=== PATIENT | male | born 1955 | race Caucasian/White ===

== ENCOUNTER → 2018-12-09 | Day surgery (SDC) | payer OTHER ==
[~2018-12-09] MED LIST: CELEBREX200 MG PO; DOXAZOSIN PO; FENTANYL CITRATE/PF 100MCG/2 ML INJ ONE; HYOSCYAMINE 0.125 MG TAB ONE; LIDOCAINE HCL 2% LOCAL INJ 5 ML SDV VIAL INJ ONE; MIDAZOLAM HCL 2 MG/2 ML VIAL ONE; OMEPRAZOLE40 MG PO; PROPOFOL IV EMULSION 10 MG/ML 50 ML VIAL ONE; UNKNOWN BP MED PO; ZEGERID 40 MG1 EACH PO; ZETIA10 MG PO
--- OUTSIDE RECORDS SUMMARY | 2018-12-09 12:16 | XMS REPORT | Encounter Summary ---
Author Organization Unknown Address [address] [place] [address] Phone [phone] Reason for Visit Medical Complaint Instructions 1. Cough Medrol (Edy) 4 mg tablets in a dose pack 2. Acute sinusitis Augmentin 875 mg-125 mg tablet 3. Allergic rhinitis Discussion Note: None recorded. Patient educational handouts: No information available. Plan of Care Patient Instructions Continue flonase, start on Zyrtec only without D. If symptoms not improve in 3 days, call clinic or see pcp. Reminders Provider Appointments None recorded. Lab None recorded. Referral None recorded. Procedures None recorded. Surgeries None recorded. Imaging None recorded. Medications Name Start Date Augmentin 875 mg-125 mg tablet Take 1 tablet every 12 hours by oral route with meals for 7 days. celecoxib 200 mg capsule Medrol (Edy) 4 mg tablets in a dose pack Take as directed on package. naproxen 500 mg tablet TAKE ONE (1) TABLET(S) BY MOUTH TWICE A DAY WITH FOOD. omeprazole 40 mg capsule,delayed release Zetia 10 mg tablet Medications Administered None recorded. Vitals Height Weight BMI Blood Pressure 5 ft 10 in 221 lbs 31.7 130/88 Lab Results None recorded. Allergies Name Reaction Severity Onset NKDA Problems Name Status Onset Date Source Eustachian Tube Disorder Active Encounter Acute Sinusitis Active Encounter Acute Bronchitis Active Encounter Allergic Rhinitis Active Encounter Dizziness Active Encounter Cough Active Encounter Procedures Date Name Performed by 03/18/2010 Cholecystectomy Information not available Anesth Repair of Hernia Information not available Vaccine List Vaccine Type influenza, seasonal, injectable 12/15/2014 Social History Smoking Status Never Smoker Past Encounters 04/03/2016 Cough; Acute Sinusitis; Allergic Rhinitis Sonia Mensah, PLUMBING ENGINEERING DRAFTSPERSON: [address] [place] [address], Ph. History of Present Illness Cough Reported By: Patient HPI: Location: chest, nasal/sinus. Quality: productive cough, colored phlegm, congested, dry cough, feels 50 percent of normal. Duration: 9 days. Severity: severe. Onset/Timing: gradual. Context: no sick contacts, no foreign travel, non-smoker. Modifying factors: OTC medication. Associated Symptoms: no sputum production, no shortness of breath, no sweats, no significant weight gain, no significant weigh t loss, no morning cough, no sore throat, no vomiting, no diarrhea, no rash, no nausea, no fever/chills, no muscle aches, no headache, wheezing Review of Systems Basic Reported By: Patient Constitutional: Constitutional: no fever Eyes: Eyes: no eye complaints Chpe-Fbms-Nresg-Throat: Ears: no ear complaints. Nose: nose/sinus problems. Mouth/Throat: no sore throat, no bleeding gums, no mouth complaints, no teeth problems Cardiovascular: Cardiovascular: no chest pain, no shortness of breath, no known heart murmur Respiratory: Respiratory: no shortness of breath, cough, wheezing Gastrointestinal: Gastrointestinal: no abdominal pain, no vomiting / diarrhea Genitourinary: Genitourinary: no urinary complaints, no discharge Musculoskeletal: Musculoskeletal: no muscle aches, no muscle weakness, no arthralgias/joint pain, no back pain Skin: Skin: no abnormal / changing mole, no jaundice, no rashes Neurologic: Neurologic: no loss of consciousness, no weakness, no numbness, no seizures, no dizziness, no headaches Physical Exam Adult Basic, Adult Male Complete Constitutional: General Appearance: healthy-appearing, well-nourished, well-developed. Level of Distress: NAD. Ambulation: ambulating normally Psychiatric: Mental Status: active and alert. Orientation: to time, to place, to person Eyes: Lids and Conjunctivae: non-injected, no discharge, no pallor. Pupils: PERRLA. Corneas: grossly intact. EOM: EOMI. Lens: clear. Sclerae: non-icteric. Vision: acuity grossly intact, peripheral vision grossly intact Sto-Mfii-Tujqz-Throat: Ears: no lesions on external ear, no outer ear tenderness, EACs clear, TMs clear, middle ear fluid. Hearing: no hearing loss. Nose: no lesions on external nose, nares patent, no septal deviation, nasal passages clear, sinus tenderness, nasal discharge--purulent, post nasal drip. Lips, Teeth, and Gums: no mouth or lip ulcers, no bleeding gums, normal dentition. Oropharynx: moist mucous membranes, no exudates, tonsils not enlarged, erythema Neck: Neck: supple, trachea midline, no masses, FROM. Lymph Nodes: no supraclavicular LAD, anterior cervical LAD. Thyroid: no enlargement, non-tender, no nodules Lungs: Respiratory effort: no dyspnea, no tachypnea, no use of accessory muscles, no intercostal retractions. Auscultation: breath sounds normal, good air movement Cardiovascular: Heart Auscultation: RRR, no murmurs
--- OUTSIDE RECORDS SUMMARY | 2018-12-09 12:16 | XMS REPORT | Encounter Summary ---
Author Organization Unknown Address [address] [place] [address] Phone [phone] Reason for Visit Medical Complaint Instructions 1. Acute bronchitis albuterol sulfate HFA 90 mcg/actuation aerosol inhaler Bromfed DM 2 mg-30 mg-10 mg/5 mL syrup bronchitis: care instructions 2. Acute sinusitis Augmentin 875 mg-125 mg tablet sinusitis: care instructions Discussion Note: None recorded. Plan of Care Patient Instructions Take albuterol every 4-6 hoursfor at least the next 5 days. Please complete antibiotic course even after symptoms resolve. Try warm salt water gargles, throat lozanges, soups ortea with honey and/or lemon juice to soothe the throat. Take ibuprofen or tylenolevery 6 hours for fever, pain and/or swelling of throat.Try flonase nasal spray,2sprays to each nostril once a dayfor nasal congestion. Consider using a saline sinus wash or NetiPot for sinus cleansing.Please f/u with PCP in 1 week or seek care immediatelyif you are short of breath, have trouble breathing, or can't catch breath or if any of the symptoms get worse.Patient verbalizes understanding and agrees to the plan. Reminders Provider Appointments None recorded. Lab None recorded. Referral None recorded. Procedures None recorded. Surgeries None recorded. Imaging None recorded. Medications Name Start Date albuterol sulfate HFA 90 mcg/actuation aerosol inhaler Inhale 2 puff(s) every 4-6 hours by inhalation route as needed for wheezing. Augmentin 875 mg-125 mg tablet Take 1 tablet(s) every 12 hours by oral route with meals for 10 days. Bromfed DM 2 mg-30 mg-10 mg/5 mL syrup Take 10 mL every 6 hours by oral route as needed for cough. meclizine 25 mg tablet TAKE ONE (1) TABLET(S) BY MOUTH THREE TIMES A DAY DIRECTED FOR DIZZINESS FOR 7 DAYS. Zetia 10 mg tablet Medications Administered None recorded. Vitals Height Weight BMI Blood Pressure 5 ft 10 in 225 lbs 32.3 124/84 Lab Results None recorded. Allergies Name Reaction Severity Onset NKDA Problems Name Status Onset Date Source Eustachian Tube Disorder Active Encounter Acute Sinusitis Active Encounter Acute Bronchitis Active Encounter Dizziness Active Encounter Procedures Date Name Performed by 03/18/2010 Cholecystectomy Information not available Anesth Repair of Hernia Information not available Vaccine List Vaccine Type influenza, seasonal, injectable 12/15/2014 Social History Smoking Status Never Smoker Past Encounters 09/10/2015 Acute Bronchitis; Acute Sinusitis Juanis ConroyNATEP: [address] [place] [address], Ph. History of Present Illness Qydwo-Itafixpinl-Msweqkn Reported By: Patient HPI: Location: head/sinuses. Quality: productive cough, sore throat, colored phlegm, nasal/sinus congestion, dry cough. Duration: 14days. Severity: moderate. Onset/Timing: gradual. Context: no sick contacts, no foreign travel, non-smoker. Modifying factors: OTC medication. Associated Symptoms: no sputum production, no shortness of breath, no change in number of pillows needed to sleep at night, no sweats, no significant weight gain, no significant weight loss, no morning cough, no sore throat, no vomiting, no diarrhea, no rash, no nausea, wheezing Review of Systems Basic Reported By: Patient Constitutional: Constitutional: no fever Eyes: Eyes: no eye complaints Raiy-Hzyn-Zbrqd-Throat: Ears: ear pain. Nose: no nose/sinus problems. Mouth/Throat: no bleeding gums, no mouth complaints, no teeth problems, sore throat Cardiovascular: Cardiovascular: no chest pain, no shortness [...] weakness, no numbness, no seizures, no dizziness, headache Physical Exam Adult Basic, Adult Male Complete Constitutional: General Appearance: healthy-appearing, well-nourished, well-developed. Level of Distress: NAD. Ambulation: ambulating normally Psychiatric: Mental Status: active and alert. Orientation: to time, to place, to person Eyes: Lids and Conjunctivae: non-injected, no discharge, no pallor. Pupils: PERRLA. EOM: EOMI. Lens: clear. Sclerae: non-icteric Rdy-Fttn-Rexdt-Throat: Ears: no lesions on external ear, no outer ear tenderness, EACs clear, TMs clear, TM mobility normal. Hearing: no hearing loss. Nose: no lesions on external nose, nares patent, no septal deviation, nasal passages clear, sinus tenderness, nasal discharge--purulent, post nasal drip. Lips, Teeth, and Gums: no mouth or lip ulcers, no bleeding gums, normal dentition. Oropharynx: moist mucous membranes, no exudates, tonsils not enlarged, erythema Neck: Neck: supple. Lymph Nodes: no cervical LAD Lungs: Respiratory effort: no dyspnea, no tachypnea. Auscultation: good air movement, expiratory wheezing Cardiovascular: Heart Auscultation: RRR, no murmurs Neurologic: Gait and Station: normal gait
--- OUTSIDE RECORDS SUMMARY | 2018-12-09 12:16 | XMS REPORT | Continuity of Care Document ---
Author Author [employer] Address Unknown Phone Unavailable Care Team Providers Care Director [facility] Name Role Phone [employer] Unavailable Unavailable Problems Problem Status Onset Date Classification Date Reported Comments Source Feeling feverish 03/18/2017 Diagnosis 03/18/2017 [facility] Pain in throat 03/18/2017 Diagnosis 03/18/2017 [facility] Eustachian tube disorder Problem 03/18/2017 [facility] Acute sinusitis Problem 03/18/2017 [facility] Acute bronchitis Problem 03/18/2017 [facility] Dizziness Problem 03/18/2017 [facility] Allergic rhinitis Problem 03/18/2017 [facility] Cough Problem 03/18/2017 [facility] Medications Medication Details Route Status Patient Instructions Ordering Provider Order Date Source 200 ACTUAT Albuterol 0.09 MG/ACTUAT Metered Dose Inhaler albuterol sulfate HFA 90 mcg/actuation aerosol inhaler Inhale 2 puff(s) every 4- 6 hours by inhalation route as needed for wheezing. Active [facility] Amoxicillin 875 MG / Clavulanate 125 MG Oral Tablet [Augmentin] Augmentin 875 mg-125 mg tablet Take 1 tablet every 12 hours by oral route with meals for 7 days. Active [facility] Brompheniramine Maleate 0.4 MG/ML / Dextromethorphan Hydrobromide 2 MG/ML / Pseudoephedrine Hydrochloride 6 MG/ML Oral Solution [Bromfed DM] Bromfed DM 2 mg-30 mg-10 mg/5 mL syrup Take 10 mL every 6 hours by oral route as needed for cough. Active [facility] Meclizine Hydrochloride 25 MG Oral Tablet meclizine 25 mg tablet TAKE ONE (1) TABLET(S) BY MOUTH THREE TIMES A DAY DIRECTED FOR DIZZINESS FOR 7 DAYS. Active [facility] ezetimibe 10 MG Oral Tablet [Zetia] Zetia 10 mg tablet Active [facility] ezetimibe 10 MG Oral Tablet ezetimibe 10 mg tablet Active [facility] Omeprazole 40 MG Delayed Release Oral Capsule omeprazole 40 mg capsule,delayed release Active [facility] celecoxib 200 MG Oral Capsule celecoxib 200 mg capsule Active [facility] Medrol (Edy) 4 mg tablets in a dose pack Medrol (Edy) 4 mg tablets in a dose pack Take as directed on package. Active [facility] Naproxen 500 MG Oral Tablet naproxen 500 mg tablet TAKE ONE (1) TABLET(S) BY MOUTH TWICE A DAY WITH FOOD. Active [facility] Allergies, Adverse Reactions, Alerts No Known Medication Allergies Immunizations Immunization Date Given Site Status Last Updated Comments Source influenza, injectable, quadrivalent 12/16/2016 completed [facility] influenza, seasonal, injectable 12/16/2014 completed [facility] Results Order Name Results Value Reference Range Date Interpretation Comments Source RESULT negative 03/18/2017 [facility] SWAB LOCATION Left and Right tonsillar pillars 03/18/2017 [facility] Influenza A negative 03/18/2017 [facility] Influenza B negative 03/18/2017 [facility] Pathology Reports No Data Provided for This Section Diagnostic Reports No Data Provided for This Section Consultation Notes No Data Provided for This Section Discharge Summaries No Data Provided for This Section History and Physicals No Data Provided for This Section Vital Signs Vital Sign Value Date Comments Source Diastolic (mm Hg) 80 03/18/2017 [facility] Height 70 03/18/2017 [facility] Systolic (mm Hg) 122 03/18/2017 [facility] Weight 230 03/18/2017 [facility] Diastolic (mm Hg) 88 04/03/2016 [facility] Height 70 04/03/2016 [facility] Systolic (mm Hg) 130 04/03/2016 [facility] Weight 221 04/03/2016 [facility] Diastolic (mm Hg) 84 09/10/2015 [facility] Height 70 09/10/2015 [facility] Systolic (mm Hg) 124 09/10/2015 [facility] Weight 225 09/10/2015 [facility] Encounters Location Location Details Encounter Type Encounter Number Reason For Visit Attending Provider ADM Date DC Date Status Source [place] - [facility] - [id number] Conroy, GYMNASTIC TEACHER: [address] [place] [address], Ph. [phone] [id number] Juanis Conroy 09/10/2015 [facility] [place] - [facility] - [id number] Sonia Makenna, GYMNASTIC TEACHER: [address] [facility] [place] [address], Ph. [id number] Sonia Makenna 04/03/2016 [facility] [place] - [facility] - [id number] Jose L Mensah, GYMNASTIC TEACHER-C: [address] [facility] [place] [address], Ph. [id number] Jose L Mensah 03/18/2017 [facility] Procedures Procedure Code Date Perfomer Comments Source Cholecystectomy 03/18/2010 [facility] Anesth Repair of Hernia [facility] Anesth Repair of Hernia [address] [facility] Assessment and Plan No Data Provided for This Section Plan of Care No Data Provided for This Section Social History Social History Date Source Smoking Status Never Smoker 07/24/2014 [facility] Family History No Data Provided for This Section Advance Directives No Data Provided for This Section Functional Status No Data Provided for This Section
--- OUTSIDE RECORDS SUMMARY | 2018-12-09 12:16 | XMS REPORT | Clinical Summary ---
Author Author [facility] Organization [facility] Address Unknown Phone Unavailable Care Team Providers Care English Division Chair Name Role Phone PCP Unavailable Allergies No Known Allergies Medications End Date Status Medication Sig Dispensed Refills Start Date Active omeprazole (PRILOSEC) 40 Take 40 mg by 0 MG capsule mouth daily. Active ezetimibe (ZETIA) 10 mg Take 10 mg by 0 tablet mouth daily. Active celecoxib (CELEBREX) 200 Take 200 mg 0 MG capsule by mouth every 12 (twelve) hours as needed for Pain. Active doxazosin (CARDURA) 2 MG Take 2 mg by 0 tablet mouth nightly. 11/25/2018 Discontinued dexAMETHasone (DECADRON) Take 2 mg by 0 2 MG tablet mouth 2 (two) times daily with breakfast and dinner. Active Problems Not on file Encounters Care Team Description Date Type Specialty Lou Mays MD [facility] 11/25/2018 Surgery Gastroenterology Lenard Cline MD 11/25/2018 Hospital Gastroenterology Encounter after 12/08/2017 Social History Date Tobacco Use Types Packs/Day Years Used Never Smoker Smokeless Tobacco: Never Used Alcohol Use Drinks/Week oz/Week Comments No Alcohol Habits Answer Date Recorded How often do you have a drink containing alcohol? Never 11/25/2018 How many drinks containing alcohol do you have on Not asked a typical day when you are drinking? How often do you have six or more drinks on one Not asked occasion? Sex Assigned at Date Recorded Not on file Industry Job Start Date Occupation Not on file Not on file Not on file Travel End Travel History Travel Start No recent travel history available. Last Filed Vital Signs Not on file Plan of Treatment Care Team Description Date Type Specialty Blair Bush MD [address] [facility] [address] [place] [address] 12/17/2018 Hospital Encounter Blair Bush MD [address] [facility] [address] [place] [address] ESOPHAGOGASTRODUODENOSCOPY (EGD) 12/17/2018 Surgery Procedures Comments Procedure Name Priority Date/Time Associated Diagnosis MOTILITY 11/25/2018 Esophageal dyskinesia 8:00 AM CDT Pre-op exam Dysphagia, unspecified type Gastroesophageal reflux disease, esophagitis presence not specified Chronic cough after 12/08/2017 Results Not on fileafter 12/08/2017 Insurance Payer Benefit Subscriber ID Type Phone Address Plan / Group [employer] - MGD CARE CIGNA xxxxxxxxxxx HMO/POS HMO/POS/OP EN ACCESS
--- OUTSIDE RECORDS SUMMARY | 2018-12-09 12:17 | XMS REPORT | Encounter Summary ---
Author Organization Unknown Address [address] [place] [address] Phone [phone] Reason for Visit Medical Complaint Instructions 1. Acute sinusitis sinusitis: care instructions Augmentin 875 mg-125 mg tablet 2. Feeling feverish rapid flu (A+B) 3. Pain in throat sore throat: care instructions rapid strep group A, throat Discussion Note: None recorded. Plan of Care Patient Instructions consider a trial of flonase and zyrtec if you havent already. follow up pcp Reminders Provider Appointments None recorded. Lab Rapid Flu (A+B) 03/18/2017 [facility] Rapid Strep Group a, Throat 03/18/2017 [facility] Referral None recorded. Procedures None recorded. Surgeries None recorded. Imaging None recorded. Medications Name Start Date Augmentin 875 mg-125 mg tablet Take 1 tablet every 12 hours by oral route with meals for 7 days. ezetimibe 10 mg tablet omeprazole 40 mg capsule,delayed release Medications Administered None recorded. Vitals Height Weight BMI Blood Pressure 5 ft 10 in 230 lbs 33 kg/m2 122/80 mm[Hg] Lab Results Date Name Specimen Result Interpretation Description Value Range Status Address Rapid Strep Group a, Throat Result negative [facility]: [address] [place] [address] Swab Location Left and Right tonsillar pillars [facility]: [address] [place] [address] Rapid Flu (A+B) Influenza a negative [facility]: [address] [place] [address] Influenza B negative [facility]: [address] [place] [address] Allergies Code Code System Name Reaction Severity Status Onset NKDA Problems Name Status Onset Date Source Eustachian Tube Disorder Active Encounter Acute Sinusitis Active Encounter Acute Bronchitis Active Encounter Allergic Rhinitis Active Encounter Dizziness Active Encounter Cough Active Encounter Procedures Date Name Performed by 03/18/2010 Cholecystectomy Information not available Anesth Repair of Hernia Information not available Vaccine List Vaccine Type influenza, injectable, quadrivalent 12/16/2016 influenza, seasonal, injectable 12/16/2014 Social History Smoking Status Never Smoker Past Encounters 03/18/2017 Acute Sinusitis; Feeling Feverish; Pain in Throat Jose L Mensah, [facility]: [address] [facility], [place] [address], Ph. History of Present Illness Duugy-Kymgtndnif-Agnpvba Reported By: Patient HPI: Location: head/sinuses, throat, chest. Quality: productive cough, sore throat, colored phlegm, nasal/sinus congestion. Duration: 7days. Severity: moderate. Onset/Timing: gradual. Context: no sick contacts, no foreign travel, non-smoker. Modifying factors: OTC medication. Associated Symptoms: no shortness of breath, no wheezing, no change in number of pillows needed to sleep at night, no sweats, no significant weight gain, no significant weight loss, no morning cough, no vomiting, no diarrhea, no rash, no nausea, no fever, no headache, yellow sputum, sore throat, muscle aches Review of Systems:ROS as noted in the HPI Review of Systems Basic Reported By: Patient Physical Exam Adult Basic, Adult Male Complete Reported By: Patient Constitutional: General Appearance: healthy-appearing, well-nourished, well-developed. Level of Distress: NAD. Ambulation: ambulating normally Psychiatric: Mental Status: active and alert Eyes: Lids and Conjunctivae: non-injected, no discharge Ftj-Izsh-Runds-Throat: Ears: no lesions on external ear, no outer ear tenderness, EACs clear, TMs clear, TM mobility normal. Hearing: no hearing loss. Nose: no lesions on external nose, sinus tenderness, nasal discharge--purulent; congestion. Lips, Teeth, and Gums: no mouth or lip ulcers. Oropharynx: moist mucous membranes, no erythema, no exudates, tonsils not enlarged Neck: Neck: trachea midline. Lymph Nodes: no cervical LAD Lungs: Respiratory effort: no dyspnea, no tachypnea, no use of accessory muscles, no intercostal retractions. Auscultation: breath sounds normal, good air movement Cardiovascular: Heart Auscultation: RRR, no murmurs
[2018-12-09 17:50] VITALS: BP 119/85
--- NOTE | 2018-12-10 00:17 | Operative Report ---
DATE OF PROCEDURE: 12/09/2018 SURGEON: Reilly Shannon MD PROCEDURE: Colonoscopy with polypectomy. INDICATIONS FOR COLONOSCOPY: Surveillance colonoscopy, personal history of colon polyps. MEDICATIONS: The patient was done under MAC, please see anesthesiologist's note. PROCEDURE IN DETAIL: With the patient in left lateral decubitus position, a flexible fiberoptic Olympus colonoscope was inserted into the rectum with ease and advanced all the way to the cecum. Mucosa overlying the cecum appeared to be within normal limits. One polyp was removed per cold biopsy forceps in the proximal ascending colon. The rest of the ascending, transverse, and descending appeared to be within normal limits. Two polyps were snared from the sigmoid colon. A single diverticulum was noted in the sigmoid colon. The rectum appeared to be within normal limits. The scope was then retroflexed into the distal rectum and small internal hemorrhoids were noted, none of which was actively bleeding. The scope was then straightened out and it was subsequently withdrawn. The patient tolerated procedure well. IMPRESSION: 1. Ascending colon polyp removed per cold biopsy forceps. 2. Sigmoid colon polyps x2, snared. 3. Diverticulosis minimal sigmoid colon. 4. Internal hemorrhoids none actively bleeding. PLAN: Follow up histology. Initiate high-fiber, low-fat diet. Initiate high-fiber supplement. The patient might benefit from a followup colonoscopy in 3 years. MD PRESLEY Sullivan/WAIL /[id number] cc: Freddie Shannon MD
== END | disposition home or self-care (01) ==
LOC: OR 12:10
PROVIDERS: ATTEND Internal Medicine Gastroenterology
DX: K57.30 Diverticulosis of large intestine without perforation or abscess without bleeding (principal); R12 Heartburn; Z86.010 Personal history of colon polyps; K29.60 Other gastritis without bleeding; K21.9 Gastro-esophageal reflux disease without esophagitis; K20.9 Esophagitis, unspecified; K22.70 Barrett's esophagus without dysplasia; Z68.32 Body mass index [BMI] 32.0-32.9, adult; R03.0 Elevated blood-pressure reading, without diagnosis of hypertension; Z01.810 Encounter for preprocedural cardiovascular examination; K64.8 Other hemorrhoids; D12.2 Benign neoplasm of ascending colon
CPT/HCPCS: 45380; 93005; J2001; J2250; J2704; J3010; 45385

== ENCOUNTER → 2022-09-19 | Day surgery (SDC) | payer MEDICARE, OTHER ==
[2022-09-11 12:20] LABS: BASOPHILS # (AUTO) 0.1 (0.0-0.1); BASOPHILS % 0.8 % (0.0-1.0); EOSINOPHILS # (AUTO) 0.1 (0.0-0.4); EOSINOPHILS % 1.9 % (0.0-6.0); HEMATOCRIT 42.6 % (38.2-49.6); HEMOGLOBIN 14.9 g/dL (14.0-18.0); LYMPHOCYTES # (AUTO) 1.4 (1.0-3.2); LYMPHOCYTES % 23.4 % (18.0-39.1); MEAN CORPUSCULAR HEMOGLOBIN 30.6 pg (28-32); MEAN CORPUSCULAR VOLUME 87.5 fL (81-99); MONOCYTES # (AUTO) 0.5 (0.2-0.8); MONOCYTES % 8.7 % (4.4-11.3); NEUTROPHILS # (AUTO) 3.8 (2.1-6.9); PLATELET COUNT 217 x10e3/uL (140-360); RED BLOOD COUNT 4.87 x10e6/uL (4.3-5.7); RED CELL DISTRIBUTION WIDTH 13.4 % (11.7-14.4)
[~2022-09-19] MED LIST changes: +ALLOPURINOL100 MG PO; +COLCRYS0.6 MG PO; -HYOSCYAMINE 0.125 MG TAB ONE; +LACTATED RINGER'S 1,000 ML ONE; -MIDAZOLAM HCL 2 MG/2 ML VIAL ONE; +MULTIVITAMINS1 EAC8 PO; +PROPOFOL IV EMULSION 10 MG/ML 20 ML VIAL ONE; -PROPOFOL IV EMULSION 10 MG/ML 50 ML VIAL ONE
[2022-09-19 09:10] VITALS: TEMP 97.2
[2022-09-19 09:25] VITALS: BP 126/85; PULSE 58; RESP 16; O2SAT 95
== END | disposition home or self-care (01) ==
LOC: OR 06:41
PROVIDERS: ATTEND Internal Medicine Gastroenterology
DX: K22.70 Barrett's esophagus without dysplasia (principal); Z86.010 Personal history of colon polyps; K31.7 Polyp of stomach and duodenum; K29.50 Unspecified chronic gastritis without bleeding; K44.9 Diaphragmatic hernia without obstruction or gangrene; K29.60 Other gastritis without bleeding; K21.9 Gastro-esophageal reflux disease without esophagitis; K57.30 Diverticulosis of large intestine without perforation or abscess without bleeding; K64.8 Other hemorrhoids; Z71.3 Dietary counseling and surveillance; D64.9 Anemia, unspecified; R03.0 Elevated blood-pressure reading, without diagnosis of hypertension; Z71.89 Other specified counseling; E78.5 Hyperlipidemia, unspecified; M10.9 Gout, unspecified; Z88.6 Allergy status to analgesic agent; Z01.810 Encounter for preprocedural cardiovascular examination; Z01.812 Encounter for preprocedural laboratory examination; Z79.899 Other long term (current) drug therapy; Z68.35 Body mass index [BMI] 35.0-35.9, adult; Z98.890 Other specified postprocedural states
CPT/HCPCS: 36415; 43239; 45378; 85025; 88305; 88342; 93005; J2001; J2704; J3010; J7121